=== PATIENT | male | born 1995 | race Caucasian/White ===

== ENCOUNTER 2019-01-27 03:18 | Emergency (ER) | payer BC, OTHER ==
[~2019-01-27] VITALS: Ht 175.3 cm; Wt 129.0 kg
[~2019-01-27 03:18] MED LIST: IBUP-1561 PO
[2019-01-27 03:49] VITALS: BP 133/62; PULSE 95; RESP 20; Ht 175.3 cm; Wt 129.0 kg
[2019-01-27] MEDS ORDERED: ACETAMINOPHEN 500 MG TAB PO STA (04:17)
[2019-01-27] MEDS ORDERED: LIDOCAINE 1% (MDV) 20 ML INJ SC ONE (04:30)
[2019-01-27] MEDS ORDERED: DIPHTH/TET/ACEL PERTUSS (ADULT) 0.5 ML VIAL IM* ONE (04:30)
--- NOTE | 2019-01-27 06:29 | ERD ---
ER Documentation Chief Complaint Chief Complaint Rt hand lac s/p cut on barbed wire 1 hr ago, appx 3cm lac HPI Patient 23-year-old male presented to ED for laceration on his right lateral a spect of his hand. Patient was fishing and caught himself with a barbed wire. Patient does not know when his last tetanus shot is. Patient denies any allergies to medication states he has no past medical history and currently does not take any medications. Patient is alert oriented x4 vital stable the patient has not ROS All systems reviewed and are negative except as per history of present illness. Medications Home Meds Active Scripts Ibuprofen* (Motrin*) 400 Mg Tab, 400 MG PO Q6, #30 TAB Prov:PRISCILA WEBB PA-C 01/27/19 Allergies Allergies: Coded Allergies: No Known Allergy (Unverified , 06/18/13) PMhx/Soc History of Surgery: No Anesthesia Reaction: No Hx Neurological Disorder: No Hx Respiratory Disorders: No Hx Cardiac Disorders: No Hx Psychiatric Problems: No Hx Miscellaneous Medical Probl: Yes (KIDNEY STONES) Hx Alcohol Use: No Hx Substance Use: No Hx Tobacco Use: No FmHx Family History: No diabetes, No coronary disease, No other Physical Exam Vitals Vital Signs Date Temp Pulse Resp B/P (MAP) Pulse Ox O2 O2 Flow FiO2 Time Delivery Rate 01/27/19 97.0 95 20 133/62 98 03:49 (85) Physical Exam GENERAL: The patient is well-appearing, well-nourished, in no acute distress CHEST: Clear to auscultation bilaterally. There are no rales, wheezes or rhonchi. HEART: Regular rate and rhythm. No murmurs, clicks, rubs or gallops. SKIN: 5 cm laceration to the right lateral aspect of the patient's hand. The patient is neurovascular intact the wound is superficial no signs of foreign body retainment Results 24 hrs Current Medications Medications Dose Sig/Osei Start Time Status Last (Trade) Ordered Route PRN Stop Time Admin Dose Reason Admin Diphtheria/ 0.5 ml ONCE ONCE 01/27/19 DC 01/27/19 Tetanus/Acell IM* 04:30 01/27/19 04:35 Pertussis 04:31 (Adacel) 500 mg ONCE STAT 01/27/19 DC 01/27/19 Acetaminophen PO 04:17 01/27/19 04:35 (Tylenol 04:21 Tab) Lidocaine 20 ml ONCE ONCE 01/27/19 DC (Xylocaine SC 04:30 01/27/19 1% (Mdv) 20 04:31 ml) Procedures/MDM ED course: The patient was stable throughout the ED course. The patient and/or family informed of laboratory and diagnostic imaging results throughout the ED course. Procedures: LACERATION: The patient was verbally consented prior to procedure. Patient was explained the risks, benefits and alternatives to this procedure. Location: Right hand Length: 6 cm Anesthesia: local 1% lidocaine, 5 cc Inspection: The wound was thoroughly explored and no foreign bodies, deep tissue, tendon or structural injuries were noted. Repair: The area was prepared and draped in the usual sterile manner with the wound exposed. 5 sutures were placed with good wound closure and wound approximation. Bleeding was minimal. The patient tolerated the procedure well with no complications. The wound was dressed with bacitracin and sterile gauze. The patient was neurovascularly intact post-procedure. Post-procedural wound care was discussed with the patient. The patient was advised that if they develop fever, chills, discharge or discomfort to return to the ER immediatly. I discussed with the patient the importance of having a wound check in 2 days and the importance of having the sutures removed within the appropriate time. Medications given in ER: Acetaminophen Tdap Patient tolerated medication well with no adverse reactions. Patient reported improvement in pain. Medical decision makin-year-old male presented to ED for a laceration on his right hand secondary to a fishing accident. Patient remained neurovascular intact the wound is very superficial. Wound was thoroughly irrigated no signs of foreign body retention. The patient had an updated Tdap in the ED. A total of 5 sutures were used to repair the laceration. The wound adhered well without issues. The patient had good neurovascular exam post suture placement. I educated the patient on wound care and advised him he needs to have the sutures removed in 7 to 10 days. I advised him he needs come back in 2 days for wound check. At this time I have low suspicion for neurovascular injury, osteomyelitis, compartment syndrome. Patient is agreement treatment plan had no further questions upon discharge. The patient understands if symptoms worsen he should return to ER immediately Prescription for home: Acetaminophen I have discussed with the patient proper use and common side effects to expert with the medication . I advised the patient/family to speak with the pharmacist dispensing the medication to be advised of any potential drug interactions with other medication or supplements they may be taking. Discharge: At this time, patient is stable for discharge and outpatient management. I have instructed the patient to follow-up with his\her primary care physician in 1 to 2 days. I have discussed with the patient the possibility of needing to see a specialist for further work-up and imaging studies if symptoms persist. I have instructed the patient to promptly return to the ER for any new or worsening symptoms including increased pain, fever, nausea, vomiting, weakness or LOC. The patient and\or family expressed understanding of and agreement with this plan. All questions were answered. Home care instructions were provided. Disclaimer: Inadvertent spelling and grammatical errors are likely due to EHR\dictation software use and do not reflect on the overall quality of patient care. Also, please note that the electronic time recorded on the note does not necessarily reflect the actual time of the patient encounter. Departure Diagnosis: Primary Impression: Laceration Condition: Stable Patient Instructions: Laceration, Hand, Laceration, Face (Suture Or Tape) Referrals: [facility] YOU HAVE RECEIVED A MEDICAL SCREENING EXAM AND THE RESULTS INDICATE THAT YOU DO NOT HAVE A CONDITION THAT REQUIRES URGENT TREATMENT IN THE EMERGENCY DEPARTMENT. FURTHER EVALUATION AND TREATMENT OF YOUR CONDITION CAN WAIT UNTIL YOU ARE SEEN IN YOUR DOCTORS OFFICE WITHIN THE NEXT 1-2 DAYS. IT IS YOUR RESPONSIBILITY TO MAKE AN APPOINTMENT FOR FOLOW-UP CARE. IF YOU HAVE A PRIMARY DOCTOR --you should call your primary doctor and schedule an appointment IF YOU DO NOT HAVE A PRIMARY DOCTOR YOU CAN CALL OUR PHYSICIAN REFERRAL HOTLINE AT IF YOU CAN NOT AFFORD TO SEE A PHYSICIAN YOU CAN CHOSE FROM THE FOLLOWING [facility] [address] [facility] [address] [facility] [facility] [address] [facility] [address] [facility]. [facility] [address] [facility]. [facility]. [address] [facility]. [facility] YOU HAVE RECEIVED A MEDICAL SCREENING EXAM AND THE RESULTS INDICATE THAT YOU DO NOT HAVE A CONDITION THAT REQUIRES URGENT TREATMENT IN THE EMERGENCY DEPARTMENT. FURTHER EVALUATION AND TREATMENT OF YOUR CONDITION CAN WAIT UNTIL YOU ARE SEEN IN YOUR DOCTORS OFFICE WITHIN THE NEXT 1-2 DAYS. IT IS YOUR RESPONSIBILITY TO MAKE AN APPOINTMENT FOR FOLOW-UP CARE. IF YOU HAVE A PRIMARY DOCTOR --you should call your primary doctor and schedule and appointment IF YOU DO NOT HAVE A PRIMARY DOCTOR YOU CAN CALL OUR PHYSICIAN REFERRAL HOTLINE AT . IF YOU CAN NOT AFFORD TO SEE A PHYSICIAN YOU CAN CHOSE FROM THE FOLLOWING COUNTS INCLUDE 234 BEDS AT THE [facility] INSTITUTIONS: [facility] [address] [place] [address] [facility] [address] [place] [address] [facility] [address] [place] [address] Additional Instructions: Call your primary care doctor TOMORROW for an appointment during the next 1-2 days.See the doctor sooner or return here if your condition worsens before your appointment time. Follow up in 2 days in your clinic for wound check. Follow up with your physician to remove the stitches:For Face wounds 5-7 days.For Elsewhere on the body 7-10 days. PRISCILA WEBB PA-C Jan 27, 2019 06:29
== END 2019-01-27 05:57 | disposition home or self-care (01) ==
LOC: FTE 03:18
DX: S61.411A Laceration without foreign body of right hand, initial encounter (principal); W26.8XXA Contact with other sharp object(s), not elsewhere classified, initial encounter; Y92.9 Unspecified place or not applicable; Z23 Encounter for immunization
CPT/HCPCS: 12002; 90715; Z7610; 90471